=== PATIENT | female | born 1985 | race Caucasian/White ===

== ENCOUNTER 2022-03-16 14:31 | Outpatient (CLI) | payer MEDICARE, MEDICAID, SELFPAY ==
--- NOTE | 2022-03-16 15:00 | CRLHL7_ITS ---
For Patients: As a result of the Century Cures Act, medical imaging exams and procedure reports are released immediately into your electronic medical record. You may view this report before your referring provider. If you have questions, please contact your health care provider. INDICATION: PAIN WITH OVULATION COMPARISON: none TECHNIQUE: 2D morel scale and color Doppler images were acquired of the pelvis using a transabdominal and transvaginal approach. Power Doppler evaluation of the ovaries also performed. FINDINGS: Sonographic images demonstrate a normal size and smooth outer contour of the uterus. Uterus measures 8.0 cm in length by 4.6 cm in AP diameter by 5.5 cm in transverse dimension. The myometrium has a normal uniform echotexture. The endometrial lining appears normal and measures 11 mm in composite thickness. The right ovary measures 3.3 x 1.6 x 2.7 cm in size and the left ovary measures 3.9 x 2.2 x 3.0 cm. The ovaries demonstrate normal arterial and venous blood flow on color Doppler analysis. Normal power Doppler evaluation of the ovaries. No torsion. Simple left ovarian cyst measuring 2.5 x 1.7 x 1.9 cm. There are no suspicious fluid collections within the cul-de-sac. IMPRESSION: Normal pelvic ultrasound. No ovarian torsion. Incidental 2.5 cm left ovarian cyst. Dictated by Alcon Felix MD @ 03/16/2022 3:25:11 PM (Electronically Signed)
== END 2022-03-16 14:32 | disposition home or self-care (01) ==
LOC: US 14:35
PROVIDERS: PCP Family Medicine; Visit Provider Family Medicine
DX: R10.31 Right lower quadrant pain (principal); N83.202 Unspecified ovarian cyst, left side
CPT/HCPCS: 76830; 76856; 93976

== ENCOUNTER 2022-03-17 14:48 | Emergency (ER) | payer MEDICARE, MEDICAID, SELFPAY ==
[2022-03-17 14:54] VITALS: BP 138/74; PULSE 82; RESP 16; TEMP 36.8; O2SAT 98; BMI 29.8
[2022-03-17 15:31] VITALS: BP 100/64
--- NOTE | 2022-03-17 15:50 | ED_ITS ---
HPI - Chest Pain General Chief Complaint: Chest Pain Stated Complaint: Chest Pain Time Seen by Provider: 03/17/22 15:16 History of Present Illness HPI narrative: This 36-year-old male comes in reporting an episode chest pain that began prior to arrival here. She was sitting in her car when this pain came on and seemed to occur her in the central and right part of her chest. She felt some pain also in her back. This pain lasted for about 20 minutes and now is significantly better. She does have some tightness in the lateral right upper chest area. This pain is a bit reproducible when taking a deep breath. She did not have any nausea, vomiting, lightheadedness, or diaphoresis. She states that it felt like she could not take a deep breath at the time. She also reported some tingling in her fingers subsequently. She states that she does not have any prior heart history or episode of chest pain like this. She does not have any cardiac risk factors. She states that she is training to run a 5K race and has good exercise tolerance. Related Data Home Medications Medication Instructions Recorded Confirmed lorazepam 1 mg tablet 1 mg PO QDAY PRN 02/26/22 03/17/22 topiramate 50 mg tablet 50 mg PO BID 02/26/22 03/17/22 Previous Rx's Medication Instructions Recorded albuterol sulfate 90 mcg/actuation 2 puff inhalation Q6H PRN 02/26/22 aerosol inhaler (Ventolin HFA) shortness of breath or wheezing #8.5 grams prazosin 1 mg capsule 1 mg PO QHS #30 caps 02/26/22 Allergies Allergy/AdvReac Type Severity Reaction Status Date / Time cefaclor Allergy Intermediate Verified 03/17/22 14:58 penicillin G Allergy Mild Verified 03/17/22 14:58 vancomycin Allergy Mild Verified 03/17/22 14:58 ciprofloxacin AdvReac Mild Verified 03/17/22 14:58 clindamycin AdvReac Mild Verified 03/17/22 14:58 doxycycline AdvReac Mild Verified 03/17/22 14:58 minocycline AdvReac Mild Verified 03/17/22 14:58 spironolactone AdvReac Mild Verified 03/17/22 14:58 Sulfa (Sulfonamide AdvReac Mild Verified 03/17/22 14:58 Antibiotics) sulfamethoxazole AdvReac Mild Verified 03/17/22 14:58 [From Bactrim] trimethoprim [From Bactrim] AdvReac Mild Verified 03/17/22 14:58 contrast Allergy Severe Uncoded 02/26/22 15:43 Review of Systems Status of ROS Reports: 10 or more systems reviewed and unremarkable except as noted in History and below Narrative Constitutional: No fevers, no weight gain or loss. Eyes: No discharge. No vision changes. HENT: No congestion, no sore throat, no ear pain. Cardiovascular: No palpitations. Episode of chest discomfort as described above. Respiratory: No shortness of breath, no wheezes, no cough. Gastrointestinal: No abdominal pain, no vomiting, no diarrhea. Genitourinary: No dysuria, no hematuria. Musculoskeletal: Normal range of motion. Skin: No rashes, no pruritis. Neurological: No dizziness, weakness, sensory change, speech change. Endo/Heme/Allergies: No bruising or bleeding. No polydipsia. Pysch: no suicidality, no anxiety, no insomnia. All other systems reviewed and are negative. PFSH PFS Medical History (Updated 03/17/22 @ 16:43 by Hardik Farr MD) Histoplasmosis History of shingles Osteomyelitis Surgical History (Updated 02/26/22 @ 15:48 by Anya Welch MD) H/O breast biopsy History of esophageal surgery History of reduction mammoplasty S/P cholecystectomy Social History Smoking Status: Never smoker Do you use any of these nicotine containing products: None Second hand tobacco smoke exposure: No How often do you have a drink containing alcohol: never AUDIT-C Alcohol total score: 0 Non-prescribed substance use: denies use Little interest or pleasure in doing things: several days Feeling down, depressed, or hopeless: several days Exam Narrative Exam Narrative: Constitutional: Well-developed, well-nourished, no acute distress. HEENT: Normocephalic, atraumatic. Neck: Normal range of motion. Nontender. Supple. Heart: Regular. No murmurs. Normal rate. Intact distal pulses. Lungs: Clear to auscultation. No chest discomfort. No wheezes, rhonchi, or rales. Abdomen: Normal bowel sounds. Nontender. No rebound tenderness. Genitalia: Deferred. Back: No midline tenderness. Normal range of motion. Extremities: Normal range of motion. No injury. Skin: Intact. No rash. Warm. No erythema or pallor. Neurologic: No altered sensation. No weakness. Alert and oriented. Psychiatric: No suicidality. No anxiety or depression. No insomnia. Nursing notes and vitals signs are reviewed. Const Vital Signs, click to edit/add: Vital Signs - 24 hr 03/17/22 14:54 03/17/22 15:31 Temperature 98.3 F Pulse Rate [Left Pulse Oximeter] 82 Respiratory Rate 16 Blood Pressure 100/64 Blood Pressure [Left Upper Arm] 138/74 Pulse Oximetry 98 Oxygen Delivery Method Room Air Course Vital Signs Vital signs: Initial Vital Signs Temperature 98.3 F 03/17/22 14:54 Temperature Source Temporal Artery Scan 03/17/22 14:54 Pulse Rate 82 03/17/22 14:54 Pulse Rhythm 03/17/22 14:54 Pulse Strength 3+ Normal 03/17/22 14:54 Respiratory Rate 16 03/17/22 14:54 Blood Pressure 138/74 03/17/22 14:54 Blood Pressure Mean 95 03/17/22 14:54 Blood Pressure Position Sitting 03/17/22 14:54 Pulse Oximetry 98 03/17/22 14:54 Oxygen Delivery Method 03/17/22 14:54 Vital Signs Temperature 98.3 F 03/17/22 14:54 Pulse Rate 82 03/17/22 14:54 Respiratory Rate 16 03/17/22 14:54 Blood Pressure 138/74 03/17/22 14:54 Pulse Oximetry 98 03/17/22 14:54 Oxygen Delivery Method 03/17/22 14:54 Temperature 98.3 F 03/17/22 14:54 Pulse Rate 82 03/17/22 14:54 Respiratory Rate 16 03/17/22 14:54 Blood Pressure 100/64 03/17/22 15:31 Pulse Oximetry 98 03/17/22 14:54 Oxygen Delivery Method 03/17/22 14:54 MDM - Chest Pain MDM Narrative Medical decision making narrative: This patient comes in reporting an episode of chest pain as described above. Her pain is almost completely gone but there is a small amount of discomfort just anterior from her right shoulder. EKG shows normal sinus rhythm. Lab results also returned with reassuring findings. Her troponin is 0. I did use bedside ultrasound to unofficially look at heart and lungs and saw normal anatomy including her great vessels. This patient did have a remote surgery to her esophagus because she states that she had chemotherapy in the past and it cause some pockets in her esophagus. She had a surgery to remove these. It could be that there was some spasm of her esophagus that cause this type of pain. There is no good test to identify this officially. At the time of discharge the patient appears safe for outpatient management. The treatment plan is reviewed along with written and verbal return precautions. Reasons to return and the importance of close followup were also reviewed. Lab Data Labs: Lab Results 03/17/22 03/17/22 03/17/22 Range/Units 15:59 15:59 15:59 WBC 12.78 H (4.50-11.00) K/uL RBC 4.69 (4.00-5.20) m/uL Hgb 14.8 (12.0-16.0) gm/dL Hct 45.4 (33.0-51.0) % MCV 97 (80-100) fL MCH 32 (26-34) pg MCHC 33 (32-36) gm/dL RDW Coeff of Alisha 13.9 (11.5-15.5) % Plt Count 274 (140-440) K/uL Neut % (Auto) 76.7 H (42.0-72.0) % Lymph % (Auto) 11.4 L (20-44) % [place] % (Auto) 4.8 (0.0-11.0) % Eos % (Auto) 6.5 (0.0-7.0) % Baso % (Auto) 0.4 (0.0-3.0) % Neut # (Auto) 9.80 H (1.7-7.0) K/uL Lymph # (Auto) 1.50 (0.90-2.90) K/uL [place] # (Auto) 0.60 (0.00-0.90) K/UL Eos # (Auto) 0.80 H (0.00-0.50) K/uL Baso # (Auto) 0.10 (0.00-0.30) K/uL Sodium 143 (135-149) mmol/L Potassium 3.9 (3.6-5.1) mmol/L Chloride 109 (96-114) mmol/L Carbon Dioxide 29 (20-32) mmol/L BUN 15 (5-24) mg/dL Creatinine 0.9 (0.5-1.5) mg/dL Estimated Creat Clear 72.17 Estimated GFR 86 ml/min Glucose 106 (60-115) mg/dL Calcium 9.1 (8.4-10.6) mg/dL POC Troponin I 0.01 (0.01-0.04) ng/ml ECG Data Attestation: I personally reviewed and interpreted this ECG as follows: Interpretation: Normal sinus rhythm. Rate is 81 beats per minute. There are no ST or T-wave abnormalities. Discharge Plan Discharge Clinical Impression: Atypical chest pain Patient Disposition: Home, Self-Care Condition: Improved Additional Instructions: Use [id number] medicines as needed and directed. Follow up with MD or return if worsening. Prescriptions: No Action topiramate 50 mg tablet 50 mg PO BID lorazepam 1 mg tablet 1 mg PO QDAY PRN Rx Instructions: Take 0.5 Mg Tablet at AM. Take 1 Mg Tablet in the afternoon. Take 1 Mg Tablet at Bedtime Daily. albuterol sulfate [Ventolin HFA] 90 mcg/actuation HFA aerosol inhaler 2 puff inhalation Q6H PRN (Reason: shortness of breath or wheezing) Qty: 8.5 12RF Rx Instructions: dispense whichever albuterol inhaler is covered prazosin 1 mg capsule 1 mg PO QHS Qty: 30 1RF Follow Up/Referrals: Anya Welch MD [Primary Care Provider] - Stand Alone Forms: [employer] Info Instructions
[2022-03-17 16:01] VITALS: BP 104/52
[2022-03-17 16:08] LABS: Basophils Percent Auto 0.4 % (0.0-3.0); Eosinophils Percent Auto 6.5 % (0.0-7.0); Hematocrit 45.4 % (33.0-51.0); Hemoglobin* 14.8 gm/dL (12.0-16.0); Immature Granulocytes Pct Auto 0.2 %; Lymphocytes Percent Auto 11.4 % (20-44); Mean Corpuscular HGB Conc 33 gm/dL (32-36); Mean Corpuscular Hemoglobin 32 pg (26-34); Mean Corpuscular Volume 97 fL (80-100); Monocytes Percent Auto 4.8 % (0.0-11.0); Neutrophils Percent Auto 76.7 % (42.0-72.0); Platelet Count* 274 K/uL (140-440); RDW Coefficient of Variation % 13.9 % (11.5-15.5); Red Blood Count 4.69 m/uL (4.00-5.20); Slide Review Reflex No; White Blood Count* 12.78 K/uL (4.50-11.00)
[2022-03-17 16:24] LABS: Chloride* 109 mmol/L (96-114); Potassium* 3.9 mmol/L (3.6-5.1); Sodium* 143 mmol/L (135-149)
[2022-03-17 16:27] LABS: Blood Urea Nitrogen* 15 mg/dL (5-24); Carbon Dioxide* 29 mmol/L (20-32); Creatinine* 0.9 mg/dL (0.5-1.5); Est. Creatinine Clearance* 72.17; Estimated Glomerular Filt Rate 86 ml/min; Glucose* 106 mg/dL (60-115)
[2022-03-17 16:28] LABS: Calcium* 9.1 mg/dL (8.4-10.6)
[2022-03-17 16:30] LABS: Troponin, Point-of-Care* 0.01 ng/ml (0.01-0.04)
[2022-03-17 16:32] VITALS: BP 96/55
== END 2022-03-17 16:48 | disposition home or self-care (01) ==
PROVIDERS: Emergency Provider Emergency Medicine Emergency Medical Services; PCP Family Medicine
DX: R07.9 Chest pain, unspecified (principal)
CPT/HCPCS: 36415; 80048; 84484; 85025; 93005; 99284

== ENCOUNTER 2022-04-11 13:16 | Outpatient (CLI) | payer MEDICARE, MEDICAID, SELFPAY ==
[2022-04-11 16:06] LABS: INR 0.93 (0.91-1.10)
[2022-04-11 16:07] LABS: Partial Thromboplastin Time* 25 Seconds (23-33)
[2022-04-11 16:13] LABS: Albumin* 4.5 g/dL (3.3-5.0)
[2022-04-11 16:14] LABS: Chloride* 107 mmol/L (96-114); Potassium* 4.5 mmol/L (3.6-5.1); Sodium* 141 mmol/L (135-149)
[2022-04-11 16:16] LABS: Aspartate Amino Transferase* 35 U/L (12-35); Bilirubin Total* 0.6 mg/dL (0.1-1.5); Carbon Dioxide* 28 mmol/L (20-32); Creatinine* 0.7 mg/dL (0.5-1.5); Estimated Glomerular Filt Rate 116 ml/min
[2022-04-11 16:17] LABS: Alanine Aminotransferase* 28 U/L (4-35); Alkaline Phosphatase* 75 U/L (40-150); Blood Urea Nitrogen* 18 mg/dL (5-24); Calcium* 9.6 mg/dL (8.4-10.6); Glucose* 104 mg/dL (60-115)
[2022-04-13 18:52] LABS: CRP, High Sensitivity 0.6 mg/L (<=3.0)
== END 2022-04-11 13:17 | disposition home or self-care (01) ==
PROVIDERS: PCP Family Medicine; Visit Provider Family Medicine
DX: L98.9 Disorder of the skin and subcutaneous tissue, unspecified (principal); M33.90 Dermatopolymyositis, unspecified, organ involvement unspecified; R10.31 Right lower quadrant pain; R22.9 Localized swelling, mass and lump, unspecified
CPT/HCPCS: 80053; 85610; 85730; 86141

== ENCOUNTER 2022-04-13 07:57 | Outpatient (CLI) | payer MEDICARE, MEDICAID, SELFPAY ==
--- NOTE | 2022-04-13 08:15 | CRLHL7_ITS ---
For Patients: As a result of the Century Cures Act, medical imaging exams and procedure reports are released immediately into your electronic medical record. You may view this report before your referring provider. If you have questions, please contact your health care provider. INDICATION: Lesion, L3, low back. TECHNIQUE: Directed soft tissue ultrasound without a radiologist present. FINDINGS: The patient reportedly has a palpable area in the low midline back superficially. Apparently there is a superficial bruise by the [facility] consultant`s report. Just below the skin there is a 2.4 x 1.0 x 2.3 cm hypo to echogenic structure potentially a small subcutaneous hematoma. This is unlikely to reflect a lipoma. This is indeterminate. Please correlate clinically. Further imaging evaluation or follow-up imaging may be helpful. IMPRESSION: 1.0 x 2.0 cm ill-defined hypoechoic and echogenic structure subcutaneous soft tissues midline low back nonspecific potentially a small hematoma if there has been a history of trauma. An atypical lipoma would be considered less likely. Clinical correlation and radiographic followup may be helpful. Dictated by Rasheed Escalante MD @ 04/13/2022 10:18:56 AM (Electronically Signed)
== END 2022-04-13 07:58 | disposition home or self-care (01) ==
LOC: US 07:58
PROVIDERS: PCP Family Medicine; Visit Provider Family Medicine
DX: R22.9 Localized swelling, mass and lump, unspecified (principal)
CPT/HCPCS: 76536

== ENCOUNTER 2022-09-26 08:51 | Emergency (ER) | payer MEDICARE, MEDICAID, SELFPAY ==
[2022-09-26] VITALS (23 sets, daily range): BP systolic 105–123; BP diastolic 64–74; PULSE 62–84; RESP 16–20; TEMP 35.8–36.2; O2SAT 95–100; BMI 33.7
[2022-09-26 09:43] LABS: Appearance Urine Slightly Cloudy (Clear); Bilirubin Urine Negative (Negative); Blood Urine Negative (Negative); Color Urine Yellow (Yellow); Glucose Urine Negative (Negative); Ketones Urine Negative (Negative); Leukocyte Esterase Urine Trace (Negative); Nitrite Urine Negative (Negative); Protein Urine Negative (Negative); Specific Gravity Urine 1.025 (1.000-1.030); Urobilinogen Urine 0.2 (0.2-1.0)
[2022-09-26 09:53] LABS: Bacteria Urine Moderate; Mucus Urine Few; RBC Urine 0-2 (0-2); Squamous Epithelial Cell Urine Moderate (None-Few)
--- NOTE | 2022-09-26 10:00 | ED_ITS ---
HPI - Abdominal Pain General Time Seen by Provider: 10:10 Date Seen: 09/26/22 Chief Complaint: Abdominal Pain Stated Complaint: Abdominal pain Time Seen by Provider: 09/26/22 09:59 Source: patient and RN notes reviewed Mode of arrival: ambulatory Limitations: no limitations History of Present Illness MD elicited complaint: abdominal pain Related Data Home Medications Medication Instructions Recorded Confirmed lorazepam 1 mg tablet 0.5 mg PO TID 04/10/22 09/26/22 adalimumab subcut 09/26/22 famotidine 40 mg/5 mL (8 mg/mL) 2.5 ml PO BID 09/26/22 09/26/22 oral suspension omeprazole 20 mg capsule,delayed 20 mg PO DAILY 09/26/22 09/26/22 release Previous Rx's Medication Instructions Recorded albuterol sulfate 90 mcg/actuation 2 puff inhalation Q6H PRN 02/26/22 aerosol inhaler (Ventolin HFA) shortness of breath or wheezing #8.5 grams nitrofurantoin macrocrystal 100 mg 100 mg PO BID #10 caps 09/26/22 capsule (Macrodantin) tramadol 50 mg tablet 50 mg PO Q6H PRN pain #8 tabs 09/26/22 Allergies Allergy/AdvReac Type Severity Reaction Status Date / Time cefaclor Allergy Intermediate Verified 09/26/22 13:32 penicillin G Allergy Mild Verified 09/26/22 13:32 vancomycin Allergy Mild Verified 09/26/22 13:32 ciprofloxacin AdvReac Mild Verified 09/26/22 13:32 clindamycin AdvReac Mild Verified 09/26/22 13:32 doxycycline AdvReac Mild Verified 09/26/22 13:32 minocycline AdvReac Mild Verified 09/26/22 13:32 spironolactone AdvReac Mild Verified 09/26/22 13:32 Sulfa (Sulfonamide AdvReac Mild Verified 09/26/22 13:32 Antibiotics) sulfamethoxazole AdvReac Mild Verified 09/26/22 13:32 [From Bactrim] trimethoprim [From Bactrim] AdvReac Mild Verified 09/26/22 13:32 contrast Allergy Severe Uncoded 09/26/22 13:32 [facility] Medical History (Updated 09/26/22 @ 16:12 by Lauren Howell MD) History of shingles ?Z86.19 - Personal history of other infectious and parasitic diseases (ICD- 10) Osteomyelitis ?M86.9 - Osteomyelitis, unspecified (ICD-10) Histoplasmosis ?B39.9 - Histoplasmosis, unspecified (ICD-10) Surgical History (Updated 02/26/22 @ 15:48 by Anya Welch MD) S/P cholecystectomy ?Z90.49 - Acquired absence of other specified parts of digestive tract (ICD- 10) History of reduction mammoplasty ?Z98.890 - Other specified postprocedural states (ICD-10) H/O breast biopsy ?Z98.890 - Other specified postprocedural states (ICD-10) History of esophageal surgery ?Z98.890 - Other specified postprocedural states (ICD-10) Social History Smoking Status: Never smoker Do you use any of these nicotine containing products: None Second hand tobacco smoke exposure: No How often do you have a drink containing alcohol: never AUDIT-C Alcohol total score: 0 Non-prescribed substance use: denies use Little interest or pleasure in doing things: several days Feeling down, depressed, or hopeless: several days Exam Const: Vital Signs, click to edit/add: Vital Signs - 24 hr 09/26/22 08:56 09/26/22 11:35 09/26/22 12:37 Temperature 96.5 F L Pulse Rate Pulse Rate [Pulse Oximeter] 80 64 Respiratory Rate 18 16 Blood Pressure Blood Pressure [Ri ght Upper Arm] 121/66 105/64 Pulse Oximetry 97 98 98 Oxygen Delivery Me od Room Air Room Air 09/26/22 12:37 09/26/22 12:45 09/26/22 13:00 Temperature Pulse Rate 72 67 64 Pulse Rate [Pulse Oximeter] Respiratory Rate Blood Pressure Blood Pressure [Ri ght Upper Arm] Pulse Oximetry 99 99 100 Oxygen Delivery Me thod 09/26/22 13:17 09/26/22 13:18 09/26/22 13:18 Temperature Pulse Rate 65 63 Pulse Rate [Pulse Oximeter] 68 Respiratory Rate 20 Blood Pressure 122/73 Blood Pressure [Ri ght Upper Arm] 122/73 Pulse Oximetry 98 98 99 [facility] 09/26/22 13:37 09/26/22 13:45 09/26/22 14:00 Temperature Pulse Rate 72 67 62 Pulse Rate [Pulse Oximeter] Respiratory Rate Blood Pressure Blood Pressure [Ri ght Upper Arm] Pulse Oximetry 98 99 98 Oxygen Delivery Me thod 09/26/22 14:15 09/26/22 14:30 09/26/22 14:45 Temperature Pulse Rate 66 72 67 Pulse Rate [Pulse Oximeter] Respiratory Rate Blood Pressure Blood Pressure [Ri ght Upper Arm] Pulse Oximetry 96 98 97 Oxygen Delivery Me thod 09/26/22 15:00 09/26/22 15:15 09/26/22 15:30 Temperature Pulse Rate 68 67 74 Pulse Rate [Pulse Oximeter] Respiratory Rate Blood Pressure Blood Pressure [Ri ght Upper Arm] Pulse Oximetry 97 97 97 Oxygen Delivery Me thod 09/26/22 15:43 09/26/22 15:45 Temperature Pulse Rate 74 84 Pulse Rate [Pulse Oximeter] Respiratory Rate Blood Pressure 123/74 Blood Pressure [Ri ght Upper Arm] Pulse Oximetry 97 97 Oxygen Delivery Me thod Course Course Hospital Course: Reviewed with patient that ovarian cyst is probably high on my differential. Nursing staff had already collected urinalysis and did not see any evidence of hematuria making kidney stones less likely. She is not sexually active, no chance for . She has had a history of left ovarian cyst prior. Reviewed with her that the presentation of this with acute sudden pain seems more likely to be ovarian cysts rather than appendicitis but will continue to consider this in the workup. We will start with some IV fluids, IV Toradol and Zofran, obtain pelvic ultrasound and basic blood work. Reevaluation(s) Time of Reevaluation #1: 11:47 Reevaluation #1: Reviewed with patient that the pelvic ultrasound is showing follicles on the right ovary making this her dominant ovary this cycle. There is no cyst, no evidence of ovarian torsion. She states the Toradol really only brought the pain down midway, did help but still is in significant pain. Will give her an oral dose of oxycodone. She has tolerated oral pain medicines in the past with surgery but does not remember what it was. Discussed options of CT imaging now verses further outpatient observation with return with worsening. She would like to proceed with CT imaging which I think is reasonable given that we are needing to move to narcotic pain medicines for her. Time of Reevaluation #2: 12:21 Reevaluation #2: Radiology did find out from patient that she had a reaction from contrast dye with a rash years ago, will pre-medicate him. Time of Reevaluation #3: 16:07 Reevaluation #3: Unfortunately, it took Radiology quite a long time to read her CT, I did apologize to patient but there is nothing anyone can do. Radiology is unfortunately quite busy. She and I reviewed her CT findings of possible cystitis, she is having no urinary symptoms at this point. Our plan will be to send her with antibiotics to use if she starts having urinary symptoms or if this abdominal pain is not improving in the next 24-48 hours. She certainly may just have a very painful follicle for some reason as there is only follicles developing on the right ovary at this time. It may be more mittelschmerz at this time. I will give her a few pain pills as I would not expect this to be painful for significant period of time. She is to use baseline Tylenol and ibuprofen per bottle directions. We discussed trying to avoid antibiotics if possible, she has multiple listed antibiotic allergies and certainly do not want her to have further antibiotic issues with Macrobid. Vital Signs Vital signs: Initial Vital Signs Temperature 96.5 F L 09/26/22 08:56 Temperature Source Temporal Artery Scan 09/26/22 08:56 Pulse Rate 80 09/26/22 08:56 Respiratory Rate 18 09/26/22 08:56 Blood Pressure 121/66 09/26/22 08:56 Blood Pressure Mean 84 09/26/22 08:56 Blood Pressure Position Supine 09/26/22 08:56 Pulse Oximetry 97 09/26/22 08:56 Oxygen Delivery Method Room Air 09/26/22 08:56 Vital Signs Temperature 96.5 F L 09/26/22 08:56 Pulse Rate 80 09/26/22 08:56 Respiratory Rate 18 09/26/22 08:56 Blood Pressure 121/66 09/26/22 08:56 Pulse Oximetry 97 09/26/22 08:56 Oxygen Delivery Method Room Air 09/26/22 08:56 Temperature 96.5 F L 09/26/22 08:56 Pulse Rate 84 09/26/22 15:45 Respiratory Rate 20 09/26/22 13:18 Blood Pressure 123/74 09/26/22 15:43 Pulse Oximetry 97 09/26/22 15:45 Oxygen Delivery Method Room Air 09/26/22 13:18 MDM - Abdominal Pain Differential Diagnosis Differential diagnosis: Likely abdominal pain, acute appendicitis and calculus of kidney Lab Data Attestation: I reviewed the patient's lab results. Labs: Lab Results 09/26/22 09/26/22 Range/Units 09:17 10:25 WBC 6.42 (4.50-11.00) K/uL RBC 4.81 (4.00-5.20) m/uL Hgb 14.9 (12.0-16.0) gm/dL Hct 45.1 (33.0-51.0) % MCV 94 (80-100) fL MCH 31 (26-34) pg MCHC 33 (32-36) gm/dL RDW Coeff of Alisha 13.5 (11.5-15.5) % Plt Count 197 (140-440) K/uL Neut % (Auto) 49.9 (42.0-72.0) % Lymph % (Auto) 25.1 (20-44) % [place] % (Auto) 6.2 (0.0-11.0) % Eos % (Auto) 18.2 H (0.0-7.0) % Baso % (Auto) 0.6 (0.0-3.0) % Neut # (Auto) 3.20 (1.7-7.0) K/uL Lymph # (Auto) 1.61 (0.90-2.90) K/uL [place] # (Auto) 0.40 (0.00-0.90) K/UL Eos # (Auto) 1.20 H (0.00-0.50) K/uL Baso # (Auto) 0.04 (0.00-0.30) K/uL Abs Immat Gran (auto) 0.00 (0.00-0.30) K/uL Imm/Tot Granulo (auto) 0.0 % Sodium 137 (135-149) mmol/L Potassium 3.9 (3.6-5.1) mmol/L Chloride 106 (96-114) mmol/L Carbon Dioxide 27 (20-32) mmol/L BUN 21 (5-24) mg/dL Creatinine 0.7 (0.5-1.5) mg/dL Estimated Creat Clear 91.91 Estimated GFR 115 ml/min Glucose 93 (60-115) mg/dL Lactate 0.9 (0.5-1.9) mmol/L Calcium 9.4 (8.4-10.6) mg/dL Urine Color Yellow (Yellow) Urine Appearance Slightly Cloudy A (Clear) Urine pH 7.0 (5.0-8.5) Ur Specific [place] 1.025 (1.000-1.030) Urine Protein Negative (Negative) Urine Glucose (UA) Negative (Negative) Urine Ketones Negative (Negative) Urine Blood Negative (Negative) Urine Nitrite Negative (Negative) Urine Bilirubin Negative (Negative) Urine Urobilinogen 0.2 (0.2-1.0) Ur Leukocyte Esterase Trace A (Negative) Urine RBC 0-2 (0-2) Urine WBC 2-5 (0-5) Ur Squamous Epith Cells Moderate A (None-Few) Urine Bacteria Moderate A (None) Urine Mucus Few A (None) Imaging Data US pelvis: Attestation: I have reviewed the pertinent imaging results. Radiologist's impression: [facility] Patient ID:?[id number] Site Patient ID:?[id number]. Site :?1985 Study:?US Pelvis TV-09/26/2022 11:12:29 AM Ordering Physician:Claudy Aguilar Final Report: CLINICAL HISTORY: RLQ pelvic pain Comparison 03/16/2022 TECHNIQUE: 2D morel scale ultrasound. In addition color Doppler and spectral Doppler analysis was performed of the pelvis using a transvaginal approach. FINDINGS: On transvaginal imaging, the myometrium has a normal uniform echotexture. The endometrial lining measures 1.7 cm in thickness. No uterine fibroid. The uterus measures 8.4 x 4.6 x 5.5 cm. The right ovary measures 3.2 x 1.8 x 2.7 cm in size and the left ovary measures 3.6 x 1.6 x 1.6 cm. Multiple small ovarian follicles are present within the right ovary. The ovaries demonstrate normal arterial and venous blood flow on color Doppler and spectral Doppler analysis. Trace right pelvic free fluid. IMPRESSION: No evidence of ovarian torsion or adnexal mass. Trace right pelvic free-fluid. Dictated by Alcon Felix MD @ 09/26/2022 11:32:19 AM (Electronic Signature) CT scan - abdomen: Attestation: I have reviewed the pertinent imaging results. Radiologist's impression: Patient: LILY [facility] Facility:?[facility] Patient ID:?[id number] Site Patient ID:?[id number]. Site :?1985 Study:?CT Abdomen/Pelvis W/ 93CC [id number]/12/2023 1:38:20 PM Ordering Physician:Claudy Aguilar Final Report: INDICATION: Right lower quadrant pain. TECHNIQUE: CT abdomen and pelvis acquired with 93 mL Isovue 370 contrast. COMPARISON: None. FINDINGS: Lower chest: Subcentimeter calcified granuloma in the right middle lobe. No focal consolidation. Liver: No suspicious focal hepatic lesion. Gallbladder and bile ducts: Postcholecystectomy. Pancreas: Unremarkable. Spleen: Punctate calcified granulomas. Adrenal glands: Unremarkable. Kidneys: Kidneys enhance symmetrically, without hydronephrosis. Too small to characterize hypodense right renal lesion. Retroperitoneum: No lymphadenopathy. Bowel and mesentery: Bowel is nonobstructed. Normal appendix. No significant ascites. No pneumoperitoneum. Bladder: Mild circumferential pericystic inflammation. Reproductive organs: Unremarkable. Trace pelvic free fluid, likely physiologic. Pelvic lymph nodes: No lymphadenopathy. Vessels: Unremarkable. Abdominal wall: No acute abdominal wall abnormality. Bones: Multilevel degenerative changes of the spine. No suspicious/aggressive focal osseous lesion. Probable hemangioma in the T11 vertebral body. IMPRESSION: 1. Mild circumferential pericystic inflammation, concerning for cystitis. 2. Normal appendix. Please note that all CT scans at this facility use dose modulation, iterative reconstruction, and/or weight-based dosing when appropriate to reduce radiation dose to as low as reasonably achievable. Dictated by Janeth Niño MD @ 09/26/2022 3:44:08 PM (Electronic Signature) Critical Care Time Critical Care Time Critical Care Time: No Discharge Plan Discharge Clinical Impression: Abdominal pain, right lower quadrant, [place] Patient Disposition: Home, Self-Care Condition: Stable Instructions: [place] (ED), Urinary Tract Infection in Women (DC) Additional Instructions: Take 1000 mg Tylenol up to 4 times a day baseline for pain management for up to 7 days. Can supplement with ibuprofen per bottle directions as needed. Have written for few tablets of tramadol for severe pain if needed. Your not to operate machinery or drive within 8 hours of taking this medicine. If your pain is not improving in the next 24-48 hours, develop urinary symptoms like urinary frequency or pain with urination, this could be a UTI and you should start the antibiotics. Given that you have absolutely no urinary symptoms and the ovarian ultrasound is showing follicles on the right ovary, favor pain with ovulation. Activity Level: Activity as Tolerated Discharge Diet: Regular Prescriptions: New nitrofurantoin macrocrystal [Macrodantin] 100 mg capsule 100 mg PO BID Qty: 10 0RF Rx Instructions: must administer with a meal/food tramadol 50 mg tablet 50 mg PO Q6H PRN (Reason: pain) Qty: 8 0RF No Action albuterol sulfate [Ventolin HFA] 90 mcg/actuation HFA aerosol inhaler 2 puff inhalation Q6H PRN (Reason: shortness of breath or wheezing) Qty: 8.5 12RF Rx Instructions: dispense whichever albuterol inhaler is covered lorazepam 1 mg tablet 0.5 mg PO TID omeprazole 20 mg capsule,delayed release(DR/EC) 20 mg PO DAILY famotidine 40 mg/5 mL (8 mg/mL) suspension 2.5 ml PO BID adalimumab [Humira Pen] subcut Follow Up/Referrals: Anya Welch MD [Primary Care Provider] - Stand Alone Forms: [employer] Info Instructions
--- NOTE | 2022-09-26 10:14 | CRLHL7_ITS ---
For Patients: As a result of the Century Cures Act, medical imaging exams and procedure reports are released immediately into your electronic medical record. You may view this report before your referring provider. If you have questions, please contact your health care provider. CLINICAL HISTORY: RLQ pelvic pain Comparison 03/16/2022 TECHNIQUE: 2D morel scale ultrasound. In addition color Doppler and spectral Doppler analysis was performed of the pelvis using a transvaginal approach. FINDINGS: On transvaginal imaging, the myometrium has a normal uniform echotexture. The endometrial lining measures 1.7 cm in thickness. No uterine fibroid. The uterus measures 8.4 x 4.6 x 5.5 cm. The right ovary measures 3.2 x 1.8 x 2.7 cm in size and the left ovary measures 3.6 x 1.6 x 1.6 cm. Multiple small ovarian follicles are present within the right ovary. The ovaries demonstrate normal arterial and venous blood flow on color Doppler and spectral Doppler analysis. Trace right pelvic free fluid. IMPRESSION: No evidence of ovarian torsion or adnexal mass. Trace right pelvic free-fluid. Dictated by Alcon Felix MD @ 09/26/2022 11:32:19 AM (Electronically Signed)
[2022-09-26 10:30] LABS: Lactate* 0.9 mmol/L (0.5-1.9)
[2022-09-26 10:33] LABS: Basophils Absolute Auto 0.04 K/uL (0.00-0.30); Basophils Percent Auto 0.6 % (0.0-3.0); Eosinophils Percent Auto 18.2 % (0.0-7.0); Hematocrit 45.1 % (33.0-51.0); Hemoglobin* 14.9 gm/dL (12.0-16.0); Lymphocytes Absolute Auto 1.61 K/uL (0.90-2.90); Lymphocytes Percent Auto 25.1 % (20-44); Mean Corpuscular HGB Conc 33 gm/dL (32-36); Mean Corpuscular Hemoglobin 31 pg (26-34); Mean Corpuscular Volume 94 fL (80-100); Monocytes Percent Auto 6.2 % (0.0-11.0); Neutrophils Percent Auto 49.9 % (42.0-72.0); Platelet Count* 197 K/uL (140-440); RDW Coefficient of Variation % 13.5 % (11.5-15.5); Red Blood Count 4.81 m/uL (4.00-5.20); White Blood Count* 6.42 K/uL (4.50-11.00)
[2022-09-26 10:34] LABS: Slide Review Reflex No
[2022-09-26] MEDS: 0.9 % SODIUM CHLORIDE 500 ML 500 ML IV (10:34)
[2022-09-26] MEDS: KETOROLAC 15 MG/ML inj IVP (10:34)
[2022-09-26] MEDS: ONDANSETRON 2 MG/ML inj 4 MG IVP (10:34)
[2022-09-26 10:47] LABS: Chloride* 106 mmol/L (96-114); Potassium* 3.9 mmol/L (3.6-5.1); Sodium* 137 mmol/L (135-149)
[2022-09-26 10:50] LABS: Carbon Dioxide* 27 mmol/L (20-32); Creatinine* 0.7 mg/dL (0.5-1.5); Est. Creatinine Clearance* 91.91; Estimated Glomerular Filt Rate 115 ml/min
[2022-09-26 10:51] LABS: Blood Urea Nitrogen* 21 mg/dL (5-24); Calcium* 9.4 mg/dL (8.4-10.6); Glucose* 93 mg/dL (60-115)
--- NOTE | 2022-09-26 11:48 | CRLHL7_ITS ---
For Patients: As a result of the Century Cures Act, medical imaging exams and procedure reports are released immediately into your electronic medical record. You may view this report before your referring provider. If you have questions, please contact your health care provider. INDICATION: Right lower quadrant pain. TECHNIQUE: CT abdomen and pelvis acquired with 93 mL Isovue 370 contrast. COMPARISON: None. FINDINGS: Lower chest: Subcentimeter calcified granuloma in the right middle lobe. No focal consolidation. Liver: No suspicious focal hepatic lesion. Gallbladder and bile ducts: Postcholecystectomy. Pancreas: Unremarkable. Spleen: Punctate calcified granulomas. Adrenal glands: Unremarkable. Kidneys: Kidneys enhance symmetrically, without hydronephrosis. Too small to characterize hypodense right renal lesion. Retroperitoneum: No lymphadenopathy. Bowel and mesentery: Bowel is nonobstructed. Normal appendix. No significant ascites. No pneumoperitoneum. Bladder: Mild circumferential pericystic inflammation. Reproductive organs: Unremarkable. Trace pelvic free fluid, likely physiologic. Pelvic lymph nodes: No lymphadenopathy. Vessels: Unremarkable. Abdominal wall: No acute abdominal wall abnormality. Bones: Multilevel degenerative changes of the spine. No suspicious/aggressive focal osseous lesion. Probable hemangioma in the T11 vertebral body. IMPRESSION: 1. Mild circumferential pericystic inflammation, concerning for cystitis. 2. Normal appendix. Please note that all CT scans at this facility use dose modulation, iterative reconstruction, and/or weight-based dosing when appropriate to reduce radiation dose to as low as reasonably achievable. Dictated by Janeth Niño MD @ 09/26/2022 3:44:08 PM (Electronically Signed)
[2022-09-26] MEDS: HYDROCODONE-ACETAMIN 5-325 MG 1 TAB PO (12:01)
[2022-09-26] MEDS: diphenhydrAMINE 50 MG/ML inj IVP (12:28)
[2022-09-26] MEDS: HYDROCORTISONE SOD SUCCINATE 50 MG/ML inj 200 MG IVP (12:28)
== END 2022-09-26 16:27 | disposition home or self-care (01) ==
PROVIDERS: Emergency Provider Family Medicine; PCP Family Medicine
DX: N94.0 Mittelschmerz (principal)
CPT/HCPCS: 36415; 74177; 76830; 80048; 81001; 83605; 85025; 87086; 93976; 94761; 96374; 96375; 99284; 99285; A9270; J1200; J1720; J1885; J2405; J7120; Q9967

== ENCOUNTER 2023-05-29 12:34 | Emergency (ER) | payer MEDICARE, MEDICAID, SELFPAY ==
[2023-05-29 12:41] VITALS: BP 146/86; PULSE 90; RESP 18; TEMP 36.8; O2SAT 98; BMI 38.1
--- NOTE | 2023-05-29 12:58 | ED.GENADULT ---
HPI - General Adult General Date Seen: 05/29/23 Chief complaint: Abdominal Pain Stated complaint: abdominal pain Time Seen by Provider: 05/29/23 12:37 Source: patient Mode of arrival: ambulatory Limitations: no limitations History of Present Illness HPI narrative: Patient is a 37-year-old here with concerns about bright red blood per rectum which started a couple of days ago. It has improved, she says the 1st time she noticed it was with a bowel movement in the were few small clots when she wiped. Since then, when she has had a bowel movement she has noted blood with wiping, no blood in the stool. No rectal pain. No history of similar. She also has crampy abdominal pain and now has sharp left upper quadrant pain which she says radiates to the left flank. She is concerned about possible diverticulitis or Crohn's disease as these both run in her family. She does have a history of external hemorrhoids. Generally is kind of constipated although she has had 4 bowel movements today which were soft. She has been nauseated, appetite somewhat decreased due to nausea. No vomiting. No fevers. No urinary symptoms. Normal menses last on May 12. She does not smoke, denies significant alcohol use. Status post cholecystectomy no other abdominal surgeries. Medical history otherwise reviewed notable for anxiety, PTSD, depression, irritable bowel, high cholesterol and asthma. Related Data Home Medications Medication Instructions Recorded Confirmed lorazepam 1 mg tablet 0.5 mg PO BID 04/10/22 05/29/23 famotidine 40 mg/5 mL (8 mg/mL) 2.5 ml PO BID 09/26/22 05/29/23 oral suspension omeprazole 20 mg capsule,delayed 20 mg PO BID 09/26/22 05/29/23 release bupropion HCl 150 mg 24 hr tablet, 150 mg PO QAM 05/29/23 05/29/23 extended release gabapentin 100 mg capsule 100 mg PO QPM 05/29/23 05/29/23 lamotrigine 100 mg tablet mg PO 05/29/23 Previous Rx's Medication Instructions Recorded albuterol sulfate 90 mcg/actuation 2 puff inhalation Q6H PRN 02/26/22 aerosol inhaler (Ventolin HFA) shortness of breath or wheezing #8.5 grams Allergies Allergy/AdvReac Type Severity Reaction Status Date / Time cefaclor Allergy Intermediate Verified 09/26/22 13:32 penicillin G Allergy Mild Verified 09/26/22 13:32 vancomycin Allergy Mild Verified 09/26/22 13:32 ciprofloxacin AdvReac Mild Verified 09/26/22 13:32 clindamycin AdvReac Mild Verified 09/26/22 13:32 doxycycline AdvReac Mild Verified 09/26/22 13:32 minocycline AdvReac Mild Verified 09/26/22 13:32 spironolactone AdvReac Mild Verified 09/26/22 13:32 Sulfa (Sulfonamide AdvReac Mild Verified 09/26/22 13:32 Antibiotics) sulfamethoxazole AdvReac Mild Verified 09/26/22 13:32 [From Bactrim] trimethoprim [From Bactrim] AdvReac Mild Verified 09/26/22 13:32 contrast Allergy Severe Uncoded 09/26/22 13:32 Review of Systems Status of ROS: Reports: 10 or more systems reviewed and unremarkable except as noted in History and below [facility] Medical History History of shingles ?Z86.19 - Personal history of other infectious and parasitic diseases (ICD-10) Osteomyelitis ?M86.9 - Osteomyelitis, unspecified (ICD-10) Histoplasmosis ?B39.9 - Histoplasmosis, unspecified (ICD-10) Surgical History S/P cholecystectomy ?Z90.49 - Acquired absence of other specified parts of digestive tract (ICD-10) History of reduction mammoplasty ?Z98.890 - Other specified postprocedural states (ICD-10) H/O breast biopsy ?Z98.890 - Other specified postprocedural states (ICD-10) History of esophageal surgery ?Z98.890 - Other specified postprocedural states (ICD-10) Social History Smoking Status: Never smoker Do you use any of these nicotine containing products: None Second hand tobacco smoke exposure: No How often do you have a drink containing alcohol: never AUDIT-C Alcohol total score: 0 Non-prescribed substance use: denies use Little interest or pleasure in doing things: several days Feeling down, depressed, or hopeless: several days service: No Exam Narrative: Exam Narrative: Vital signs as noted above. In general, an alert, well-appearing patient. Looks comfortable. Head: Normocephalic, atraumatic. Eyes: Pupils are equal reactive. Extraocular movements are full. Conjunctivae are normal. ENT: Mucous membranes are moist. Throat is normal. Neck: Supple without lymphadenopathy. Heart: Regular rate and rhythm. No murmur or rub. Lungs: Clear bilaterally. No increased work of breathing, crackles or wheezes. Abdomen: Soft and nondistended. Bowel sounds present. Diffuse mild tenderness, greatest in the left upper quadrant. No rebound guarding or rigidity. Rectal: Light brown stool in the vault, it does on palpation feel like she has some internal hemorrhoids, there is no visible blood on exam. No external hemorrhoids at this time. No fissure. Extremities: Well perfused. No edema. No calf tenderness. Pulses intact. Neurologic: Patient is alert and oriented to person and place. Speech is fluent. Face is symmetric. Moves all extremities equally. Affect: Normal. Skin: Warm and dry. Well perfused. Const: Vital Signs, click to edit/add: Vital Signs - 24 hr 05/29/23 12:41 Temperature 98.2 F Pulse Rate [Pulse Oximeter] 90 Respiratory Rate 18 Blood Pressure [Le ft Upper Arm] 146/86 H Pulse Oximetry 98 Oxygen Delivery Me thod Room Air Documenting provider has reviewed patient's vital signs: yes Course Course ED Course: Patient presents with some generalized abdominal pain, more so in the left upper quadrant, some bright red blood with wiping, none now. Diagnostic considerations include hemorrhoidal bleeding, diverticular bleeding, diverticulitis, kidney stone, UTI or pyelonephritis, among others. Denies the need for medications for pain or nausea right now. Will establish an IV, draw some labs to start, urine, urine test Evaluation overall unremarkable. She has a normal white blood cell count, hemoglobin of 12.9. She does have a mild eosinophilia, with about [address] scan done last summer did not show any evidence of diverticulosis, discussed with her that my suspicion for diverticulitis is therefore rather low. Fecal occult blood was positive, though stool looks normal to the naked eye and I did not see any evidence of bright red blood at this time. Discussed with her that this may represent hemorrhoidal bleeding, but that I would recommend primary care follow-up to determine whether repeat colonoscopy or flex sig might be helpful to further evaluate. With her eosinophilia, eosinophilic gastritis would be a possibility as well. She does have a history of asthma although she denies prior history of eczema. Her CRP was normal, sed rate was mildly elevated at 23. Urinalysis was negative, test was negative. LFTs and lipase were normal. Given benign abdominal exam and reassuring labs, I do not think repeat CT scanning is needed today. If she has significant worsening, severe pain, vomiting, fevers, significant blood per rectum she should return. Otherwise I have recommended primary care follow-up to discuss all the above, repeat CBC to follow for persistent eosinophilia. She is comfortable with that plan. Vital Signs Vital signs: Initial Vital Signs Temperature 98.2 F 05/29/23 12:41 Temperature Source Temporal Artery Scan 05/29/23 12:41 Pulse Rate 90 05/29/23 12:41 Respiratory Rate 18 05/29/23 12:41 Blood Pressure 146/86 H 05/29/23 12:41 Blood Pressure Mean 106 H 05/29/23 12:41 Blood Pressure Position Sitting 05/29/23 12:41 Pulse Oximetry 98 05/29/23 12:41 Oxygen Delivery Method Room Air 05/29/23 12:41 Vital Signs Temperature 98.2 F 05/29/23 12:41 Pulse Rate 90 05/29/23 12:41 Respiratory Rate 18 05/29/23 12:41 Blood Pressure 146/86 H 05/29/23 12:41 Pulse Oximetry 98 05/29/23 12:41 Oxygen Delivery Method Room Air 05/29/23 12:41 Temperature 98.2 F 05/29/23 12:41 Pulse Rate 90 05/29/23 12:41 Respiratory Rate 18 05/29/23 12:41 Blood Pressure 146/86 H 05/29/23 12:41 Pulse Oximetry 98 05/29/23 12:41 Oxygen Delivery Method Room Air 05/29/23 12:41 Medications Administered Medications: Discontinued Medications Generic Name Dose Route Start Last Admin Trade Name Freq PRN Reason Stop Dose Admin Sodium Chloride 1,000 mls @ 1,000 mls/hr 05/29/23 13:00 05/29/23 14:23 0.9 % Sodium Chloride 1000 Ml IV 05/29/23 13:59 Infused .Q1H RASHIDA Infusion Medical Decision Making Lab Data Labs: Lab Results 05/29/23 05/29/23 05/29/23 Range/Units 13:10 13:10 13:10 WBC 10.34 (4.50-11.00) K/uL RBC 4.22 (4.00-5.20) m/uL Hgb 12.9 (12.0-16.0) gm/dL Hct 39.5 (33.0-51.0) % MCV 94 (80-100) fL MCH 31 (26-34) pg MCHC 33 (32-36) gm/dL RDW Coeff of Alisha 13.1 (11.5-15.5) % Plt Count 286 (140-440) K/uL Neut % (Auto) 53.8 (42.0-72.0) % Lymph % (Auto) 21.2 (20-44) % [place] % (Auto) 7.9 (0.0-11.0) % Eos % (Auto) 16.4 H (0.0-7.0) % Baso % (Auto) 0.5 (0.0-3.0) % Neut # (Auto) 5.56 (1.7-7.0) K/uL Lymph # (Auto) 2.19 (0.90-2.90) K/uL [place] # (Auto) 0.80 (0.00-0.90) K/UL Eos # (Auto) 1.70 H (0.00-0.50) K/uL Baso # (Auto) 0.05 (0.00-0.30) K/uL Abs Immat Gran (auto) 0.02 (0.00-0.30) K/uL Imm/Tot Granulo (auto) 0.2 % ESR 23 H (2-20) mm/hr Sodium 138 (135-149) mmol/L Potassium 4.0 (3.6-5.1) mmol/L Chloride 106 (96-114) mmol/L Carbon Dioxide 26 (20-32) mmol/L Anion Gap 6 L (7-15) mEq/L BUN 19 (5-24) mg/dL Creatinine 0.7 (0.5-1.5) mg/dL Estimated Creat Clear 95.94 Estimated GFR 115 ml/min Glucose 99 (60-115) mg/dL Calcium 8.8 (8.4-10.6) mg/dL Total Bilirubin 0.3 Cancelled (0.1-1.5) mg/dL Direct Bilirubin 0.2 Cancelled (0.0-0.5) mg/dL AST 25 (12-35) U/L ALT (4-35) U/L Alkaline Phosphatase (40-150) U/L C-Reactive Protein (0.5-1.0) mg/dL Total Protein (6.0-8.3) g/dL Albumin (3.3-5.0) g/dL Lipase (23-300) U/L Urine Color (Yellow) Urine Appearance (Clear) Urine pH (5.0-8.5) Ur Specific [place] (1.000-1.030) Urine Protein (Negative) Urine Glucose (UA) (Negative) Urine Ketones (Negative) Urine Blood (Negative) Urine Nitrite (Negative) Urine Bilirubin (Negative) Urine Urobilinogen (0.2-1.0) Ur Leukocyte Esterase (Negative) Urine RBC (0-2) Urine WBC (0-5) Ur Squamous Epith Cells (None-Few) Urine Bacteria (None) Urine HCG, Qual (Negative) Stool Occult Blood (Negative) 05/29/23 05/29/23 05/29/23 Range/Units 13:10 13:10 13:10 WBC (4.50-11.00) K/uL RBC (4.00-5.20) m/uL Hgb (12.0-16.0) gm/dL Hct (33.0-51.0) % MCV (80-100) fL MCH (26-34) pg MCHC (32-36) gm/dL RDW Coeff of Alisha (11.5-15.5) % Plt Count (140-440) K/uL Neut % (Auto) (42.0-72.0) % Lymph % (Auto) (20-44) % [place] % (Auto) (0.0-11.0) % Eos % (Auto) (0.0-7.0) % Baso % (Auto) (0.0-3.0) % Neut # (Auto) (1.7-7.0) K/uL Lymph # (Auto) (0.90-2.90) K/uL [place] # (Auto) (0.00-0.90) K/UL Eos # (Auto) (0.00-0.50) K/uL Baso # (Auto) (0.00-0.30) K/uL Abs Immat Gran (auto) (0.00-0.30) K/uL Imm/Tot Granulo (auto) % ESR (2-20) mm/hr Sodium (135-149) mmol/L Potassium (3.6-5.1) mmol/L Chloride (96-114) mmol/L Carbon Dioxide (20-32) mmol/L Anion Gap (7-15) mEq/L BUN (5-24) mg/dL Creatinine (0.5-1.5) mg/dL Estimated Creat Clear Estimated GFR ml/min Glucose (60-115) mg/dL Calcium (8.4-10.6) mg/dL Total Bilirubin (0.1-1.5) mg/dL Direct Bilirubin (0.0-0.5) mg/dL AST Cancelled (12-35) U/L ALT 19 Cancelled (4-35) U/L Alkaline Phosphatase 91 Cancelled (40-150) U/L C-Reactive Protein 0.6 (0.5-1.0) mg/dL Total Protein 6.6 (6.0-8.3) g/dL Albumin (3.3-5.0) g/dL Lipase (23-300) U/L Urine Color (Yellow) Urine Appearance (Clear) Urine pH (5.0-8.5) Ur Specific [place] (1.000-1.030) Urine Protein (Negative) Urine Glucose (UA) (Negative) Urine Ketones (Negative) Urine Blood (Negative) Urine Nitrite (Negative) Urine Bilirubin (Negative) Urine Urobilinogen (0.2-1.0) Ur Leukocyte Esterase (Negative) Urine RBC (0-2) Urine WBC (0-5) Ur Squamous Epith Cells (None-Few) Urine Bacteria (None) Urine HCG, Qual (Negative) Stool Occult Blood (Negative) 05/29/23 05/29/23 05/29/23 Range/Units 13:10 13:10 13:10 WBC (4.50-11.00) K/uL RBC (4.00-5.20) m/uL Hgb (12.0-16.0) gm/dL Hct (33.0-51.0) % MCV (80-100) fL MCH (26-34) pg MCHC (32-36) gm/dL RDW Coeff of Alisha (11.5-15.5) % Plt Count (140-440) K/uL Neut % (Auto) (42.0-72.0) % Lymph % (Auto) (20-44) % [place] % (Auto) (0.0-11.0) % Eos % (Auto) (0.0-7.0) % Baso % (Auto) (0.0-3.0) % Neut # (Auto) (1.7-7.0) K/uL Lymph # (Auto) (0.90-2.90) K/uL [place] # (Auto) (0.00-0.90) K/UL Eos # (Auto) (0.00-0.50) K/uL Baso # (Auto) (0.00-0.30) K/uL Abs Immat Gran (auto) (0.00-0.30) K/uL Imm/Tot Granulo (auto) % ESR (2-20) mm/hr Sodium (135-149) mmol/L Potassium (3.6-5.1) mmol/L Chloride (96-114) mmol/L Carbon Dioxide (20-32) mmol/L Anion Gap (7-15) mEq/L BUN (5-24) mg/dL Creatinine (0.5-1.5) mg/dL Estimated Creat Clear Estimated GFR ml/min Glucose (60-115) mg/dL Calcium (8.4-10.6) mg/dL Total Bilirubin (0.1-1.5) mg/dL Direct Bilirubin (0.0-0.5) mg/dL AST (12-35) U/L ALT (4-35) U/L Alkaline Phosphatase (40-150) U/L C-Reactive Protein (0.5-1.0) mg/dL Total Protein Cancelled (6.0-8.3) g/dL Albumin 3.7 Cancelled (3.3-5.0) g/dL Lipase 113 Cancelled (23-300) U/L Urine Color Yellow (Yellow) Urine Appearance Clear (Clear) Urine pH 8.5 (5.0-8.5) Ur Specific [place] 1.025 (1.000-1.030) Urine Protein Negative (Negative) Urine Glucose (UA) Negative (Negative) Urine Ketones Negative (Negative) Urine Blood Negative (Negative) Urine Nitrite Negative (Negative) Urine Bilirubin Negative (Negative) Urine Urobilinogen 0.2 (0.2-1.0) Ur Leukocyte Esterase Negative (Negative) Urine RBC 0-2 (0-2) Urine WBC 2-5 (0-5) Ur Squamous Epith Cells Few (None-Few) Urine Bacteria Few A (None) Urine HCG, Qual Negative (Negative) Stool Occult Blood Positive A (Negative) Discharge Plan Discharge Clinical Impression: Eosinophilia, BRBPR (bright red blood per rectum), Abdominal pain Patient Disposition: Home, Self-Care Condition: Stable Instructions: Rectal Bleeding (ED), Abdominal Pain (ED) Additional Instructions: Your evaluation here today is overall reassuring. Your blood counts are normal, but you have a predominance of eosinophils, which is of indeterminate significance right now. I would recommend that this be rechecked with your primary clinic, as there are some gastrointestinal conditions associated with eosinophilia. If you have persistence of symptoms, it may be worthwhile to follow up with GI and consider an endoscopy. For rectal bleeding, please discuss further with her primary doctor as to whether repeat colonoscopy or flex sig would be indicated. Return to the emergency department at any time for severe pain, fevers, vomiting or other worsening, significant blood per rectum etcetera. Prescriptions: No Action albuterol sulfate [Ventolin HFA] 90 mcg/actuation HFA aerosol inhaler 2 puff inhalation Q6H PRN (Reason: shortness of breath or wheezing) Qty: 8.5 12RF Rx Instructions: dispense whichever albuterol inhaler is covered lorazepam 1 mg tablet 0.5 mg PO BID gabapentin 100 mg capsule 100 mg PO QPM lamotrigine 100 mg tablet PO bupropion HCl 150 mg tablet extended release 24 hr 150 mg PO QAM omeprazole 20 mg capsule,delayed release(DR/EC) 20 mg PO BID famotidine 40 mg/5 mL (8 mg/mL) suspension 2.5 ml PO BID Follow Up/Referrals: Anya Welch MD [Primary Care Provider] - Stand Alone Forms: [employer] Info Instructions
[2023-05-29] MEDS: 0.9 % SODIUM CHLORIDE 1000 ml 1,000 ML IV (13:19)
[2023-05-29 13:28] LABS: Hematocrit 39.5 % (33.0-51.0); Hemoglobin* 12.9 gm/dL (12.0-16.0); Lymphocytes Percent Auto 21.2 % (20-44); Mean Corpuscular HGB Conc 33 gm/dL (32-36); Mean Corpuscular Hemoglobin 31 pg (26-34); Mean Corpuscular Volume 94 fL (80-100); Monocytes Percent Auto 7.9 % (0.0-11.0); Neutrophils Percent Auto 53.8 % (42.0-72.0); Platelet Count* 286 K/uL (140-440); RDW Coefficient of Variation % 13.1 % (11.5-15.5); Red Blood Count 4.22 m/uL (4.00-5.20); White Blood Count* 10.34 K/uL (4.50-11.00)
[2023-05-29 13:29] LABS: Basophils Absolute Auto 0.05 K/uL (0.00-0.30); Basophils Percent Auto 0.5 % (0.0-3.0); Eosinophils Percent Auto 16.4 % (0.0-7.0); Immature Granulocytes Abs Auto 0.02 K/uL (0.00-0.30); Immature Granulocytes Pct Auto 0.2 %; Lymphocytes Absolute Auto 2.19 K/uL (0.90-2.90); Neutrophils Absolute Auto 5.56 K/uL (1.7-7.0)
[2023-05-29 13:30] LABS: Slide Review Reflex No
[2023-05-29 13:37] LABS: Appearance Urine Clear (Clear); Bilirubin Urine Negative (Negative); Blood Urine Negative (Negative); Color Urine Yellow (Yellow); Glucose Urine Negative (Negative); Ketones Urine Negative (Negative); Leukocyte Esterase Urine Negative (Negative); Nitrite Urine Negative (Negative); Protein Urine Negative (Negative); Specific Gravity Urine 1.025 (1.000-1.030); Urobilinogen Urine 0.2 (0.2-1.0); pH Urine 8.5 (5.0-8.5)
[2023-05-29 13:38] LABS: Fecal Occult Blood* Positive (Negative)
[2023-05-29 13:48] LABS: Bacteria Urine Few; RBC Urine 0-2 (0-2); Squamous Epithelial Cell Urine Few (None-Few); Ur HCG Qualitative* Negative (Negative)
[2023-05-29 14:08] LABS: Albumin* 3.7 g/dL (3.3-5.0); Chloride* 106 mmol/L (96-114)
[2023-05-29 14:09] LABS: Sodium* 138 mmol/L (135-149)
[2023-05-29 14:11] LABS: Anion Gap 6 mEq/L (7-15); Aspartate Amino Transferase* 25 U/L (12-35); Bilirubin Direct* 0.2 mg/dL (0.0-0.5); Bilirubin Total* 0.3 mg/dL (0.1-1.5); Carbon Dioxide* 26 mmol/L (20-32); Creatinine* 0.7 mg/dL (0.5-1.5); Est. Creatinine Clearance* 95.94; Estimated Glomerular Filt Rate 115 ml/min; Total Protein* 6.6 g/dL (6.0-8.3)
[2023-05-29 14:12] LABS: Alanine Aminotransferase* 19 U/L (4-35); Alkaline Phosphatase* 91 U/L (40-150); Blood Urea Nitrogen* 19 mg/dL (5-24); Calcium* 8.8 mg/dL (8.4-10.6); Erythrocyte SedimentationRate* 23 mm/hr (2-20); Glucose* 99 mg/dL (60-115); Lipase* 113 U/L (23-300)
[2023-05-29 14:14] LABS: C Reactive Protein* 0.6 mg/dL (0.5-1.0)
[2023-05-29 14:54] VITALS: BP 113/78; PULSE 84; RESP 18
== END 2023-05-29 14:56 | disposition home or self-care (01) ==
PROVIDERS: Emergency Provider Emergency Medicine; PCP Family Medicine
DX: R10.9 Unspecified abdominal pain (principal); K62.5 Hemorrhage of anus and rectum; D72.10 Eosinophilia, unspecified
CPT/HCPCS: 36415; 80048; 80076; 81001; 81025; 82270; 83690; 85025; 85651; 86140; 87086; 99283; 99284; J7030